=== PATIENT | female | born 1985 | race Two or more races ===

== ENCOUNTER 2017-04-08 21:04 | Emergency (ER) | payer OTHER ==
[~2017-04-08] VITALS: Ht 167.6 cm; Wt 70.3 kg
[2017-04-08 21:07] VITALS: BP 136/84
[2017-04-08] MEDS ORDERED: LORazepam 1mg tab ORAL ONE (21:45)
[2017-04-08] MEDS ORDERED: LORazepam Inj 2mg/ml 1ml IM ONE (21:45)
[2017-04-08] MEDS ORDERED: ATIVAN0.5 MG ORAL (21:54)
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
[2017-04-08 22:00] VITALS: BP 128/70
== END 2017-04-08 22:00 | disposition home or self-care (01) ==
LOC: EDBD 21:04 → EMR 21:30
DX: O99.342 Other mental disorders complicating pregnancy, second trimester (principal); F41.9 Anxiety disorder, unspecified; Z3A.19 19 weeks gestation of pregnancy; Z88.0 Allergy status to penicillin
CPT/HCPCS: 99283